=== PATIENT | female | born 1965 | race Hispanic/Latino ===

== ENCOUNTER → 2023-09-08 | Outpatient (CLI) | payer SELFPAY | END | disposition home or self-care (01) | LOC: RAH 13:20 | PROVIDERS: ATTEND Hospitalist | DX: Z11.1 Encounter for screening for respiratory tuberculosis (principal); R76.11 Nonspecific reaction to tuberculin skin test without active tuberculosis; J84.10 Pulmonary fibrosis, unspecified | CPT/HCPCS: 71046 ==